=== PATIENT | female | born 1995 | race Caucasian/White ===

== ENCOUNTER 2016-12-15 23:32 | Emergency (ER) | payer MEDICAID ==
[2016-12-16] VITALS: BMI 24.5
[2016-12-16] MEDS ORDERED: Sodium Chloride 0.9% 1,000 ML IV STA (00:05)
[2016-12-16 00:52] VITALS: BP 139/72; TEMP 98.4; O2SAT 100
[2016-12-16 01:06] LABS: URINE BILIRUBIN NEGATIVE (NEGATIVE); URINE BLOOD TRACE-LYSED (NEGATIVE); URINE GLUCOSE (UA) NEGATIVE (NEGATIVE); URINE LEUKOCYTE ESTERASE NEGATIVE Leu/uL (NEGATIVE); URINE NITRATE NEGATIVE (NEGATIVE); URINE PROTEIN NEGATIVE mg/dL (<30 mg/dL); URINE UROBILINOGEN 0.2 E.U./dL (<1 E.U./dL)
[2016-12-16 01:11] LABS: ALB/GLOB RATIO 1.2 (1.1-1.8); ALBUMIN 4.5 g/dL (3.0-4.8); AST/SGOT 21 U/L (15-39); BLOOD UREA NITROGEN 9 mg/dL (7-21); GFR AFRICAN-AMERICAN > 60; GFR NON-AFRICAN AMERICAN > 60
[2016-12-16 01:13] LABS: URINE APPEARANCE CLEAR (CLEAR); URINE COLOR YELLOW (YELLOW)
[2016-12-16 01:15] LABS: BASO # 0.02 K/mm3 (0.0-2.0); BASO % 0.3 % (0.0-3.0); EOS # 0.1 (0.0-0.7); EOS % 1.9 % (1.5-5.0); GRAN # 3.81 (1.4-6.5); GRAN % 56.3 % (50.0-68.0); HCG,QUALITATIVE URINE POSITIVE (NEGATIVE); LYMPH # 2.2 (1.2-3.4); LYMPH % 32.9 % (22.0-35.0); MEAN CELL VOLUME 80.5 fL (80.0-105.0); MEAN CORPUSCULAR HEMOGLOBIN 27.9 pg (25.0-35.0); MEAN CORPUSCULAR HGB CONC 34.7 g/dl (31.0-37.0); MEAN PLATELET VOLUME 9.9 fl (7.0-11.0); MONO # 0.6 (0.1-0.6); MONO % 8.6 % (1.0-6.0); PLATELET COUNT 313 10^3/uL (120.0-450.0); RBC 4.66 10^6/uL (3.5-6.1); RED CELL DISTRIBUTION WIDTH 13.1 % (11.5-14.5); WHITE BLOOD COUNT 6.8 10^3/ul (4.5-11.0)
[2016-12-16 01:21] LABS: URINE EPITHELIAL CELLS 0 - 2 /hpf (0-5); URINE RBC 0 - 2 /hpf (0-2); URINE WBC 0 - 2 /hpf (0-6)
[2016-12-16 01:28] LABS: ALT/SGPT 17 U/L (7-56)
--- NOTE | 2016-12-16 01:32 | ED PDOC ---
Arrival/HPI - General Chief Complaint: Female Genitourinary Time Seen by Provider: 12/16/16 00:04 Historian: Patient - History of Present Illness Narrative History of Present Illness (Text): 12/16/16 01:29 21yr old female who is 10 weeks presents today with vaginal bleeding x 4 days. pt c/o occasional lower abdominal cramping. no fever/chills. denies urinary symptoms. no cp or sob. no vomiting/diarrhea. denies dizziness or weakness. pt states she had US at 8weeks which confirmed IUP. Time/Duration: Other (4 days) Symptom Onset: Gradual Symptom Course: Intermittent Quality: Cramping Severity Level: 2 Past Medical History - Provider Review Nursing Documentation Reviewed: Yes - Travel History Have you recently traveled outside [place] w/in the past 3 mons?: Yes If Yes, travel location?: [place] - Infectious Disease Hx of Infectious Diseases: None - Tetanus Immunization Tetanus Immunization: Unknown - Cardiac Hx Cardiac Disorders: No - Pulmonary Hx Respiratory Disorders: No - Psychiatric Hx Anxiety: Yes Hx Substance Use: No Family/Social History - Physician Review Nursing Documentation Reviewed: Yes Family/Social History: Unknown Family HX Smoking Status: Unknown If Ever Smoked Hx Alcohol Use: No Hx Substance Use: No Allergies/Home Meds Allergies/Adverse Reactions: Allergies Penicillins Allergy (Verified 03/23/16 11:37) RASH pineapple Allergy (Verified 12/16/16 00:01) RASH Review of Systems - Review of Systems Constitutional: absent: Fatigue, Fevers Respiratory: absent: SOB, Cough Cardiovascular: absent: Chest Pain, Palpitations Gastrointestinal: Abdominal Pain. absent: Constipation, Diarrhea, Nausea, Vomiting Genitourinary Female: Vaginal Bleeding. absent: Dysuria, Frequency, Hematuria, Vaginal Discharge Musculoskeletal: absent: Arthralgias, Back Pain, Neck Pain Skin: absent: Rash, Pruritis Neurological: absent: Headache, Dizziness Psychiatric: absent: Anxiety, Depression Physical Exam Vital Signs Reviewed: Yes Vital Signs Temp Pulse Resp BP Pulse Ox 12/16/16 01:37 89 17 100 12/16/16 00:48 98.4 F 109 H 16 139/72 100 12/15/16 23:33 98.4 F 109 H 16 139/72 100 Temperature: Afebrile Blood Pressure: Normal Pulse: Tachycardic Respiratory Rate: Normal Appearance: Positive for: Well-Appearing, Non-Toxic, Comfortable Pain Distress: None Mental Status: Positive for: Alert and Oriented X 3 - Systems Exam Head: Present: Atraumatic Mouth: Present: Moist Mucous Membranes Neck: Present: Normal Range of Motion Respiratory/Chest: Present: Clear to Auscultation, Good Air Exchange. No: Respiratory Distress, Accessory Muscle Use Cardiovascular: Present: Regular Rate and Rhythm, Normal S1, S2. No: Murmurs Abdomen: Present: Normal Bowel Sounds. No: Tenderness, Distention, Peritoneal Signs, Rebound, Guarding Genitourinary/Pelvic Exam: Present: Other (PATIENT REFUSED PELVIC EXAMINATION) Back: Present: Normal Inspection. No: CVA Tenderness, Midline Tenderness, Paraspinal Tenderness Upper Extremity: Present: Normal Inspection Lower Extremity: Present: Normal Inspection. No: Edema Neurological: Present: GCS=15 Skin: Present: Warm, Dry, Normal Color. No: Rashes Psychiatric: Present: Alert, Oriented x 3 Medical Decision Making ED Course and Treatment: 12/16/16 01:35 Patient is nontoxic well appearing in no distress. C/O vaginal bleeding x 4 days. pt refused pelvic/speculum examination. CBC: wnl CMP: wnl Beta hC TYPE AND SCREEN: A+ Urinalysis:+ blood Ultrasound: FINDINGS: Gestation: There is a single intrauterine gestation. Gestational sac has mean diameter 39.7 mm [place] rump length measures 36.6 mm. There is heart rate of 196 beats per minute. Uterus: Uterus measures 11.3 x 5.5 x 7.9 cm. Ovaries: Neither ovary is identified Free fluid: No free fluid. IMPRESSION: 10 week 0 day single live intrauterine gestation, estimated date of delivery 07/14/2017 Discussed all the results the patient. advised f/u with the custom miller within the next 2 days. advised immediate return if symptoms worsen,persist or if new symptoms develop. Patient verbalizes understanding of discharge instructions and need for immediate followup. Impression: threatened Increase fluids Followup with the skates operator within the next 2 days Return immediately if symptoms worsen persist or if new symptoms develop: High fevers, heavy bleeding, severe abdominal pain, vomiting, diarrhea, dizziness or weakness or any other concerning symptoms develop. continue vitamins daily. - Lab Interpretations Lab Results: 12/16/16 00:35 12/16/16 00:35 Lab Results 12/16/16 00:35: Blood Type A POSITIVE, Antibody Screen Negative, BBK History Checked No verified bt 12/16/16 00:35: WBC 6.8, RBC 4.66, Hgb 13.0, Hct 37.5, MCV 80.5, MCH 27.9, MCHC 34.7, RDW 13.1, Plt Count 313, MPV 9.9, Gran % 56.3, Lymph % (Auto) 32.9, Boyd % (Auto) 8.6 H, Eos % (Auto) 1.9, Baso % (Auto) 0.3, Gran # 3.81, Lymph # 2.2, Boyd # 0.6, Eos # 0.1, Baso # 0.02 12/16/16 00:35: Beta HCG, Quant 69108.00 H 12/16/16 00:35: Sodium 137, Potassium 4.0, Chloride 102, Carbon Dioxide 24, Anion Gap 15, BUN 9, Creatinine 0.5, Est GFR ( Amer) > 60, Est GFR (Non- Af Amer) > 60, Random Glucose 89, Calcium 10.0, Total Bilirubin 0.4, AST 21, ALT 17, Alkaline Phosphatase 44, Total Protein 8.2, Albumin 4.5, Globulin 3.7, Albumin/Globulin Ratio 1.2 12/16/16 00:35: Urine Color Yellow, Urine Appearance Clear, Urine pH 6.0, Ur Specific [place] 1.010, Urine Protein Negative, Urine Glucose (UA) Negative, Urine Ketones Negative, Urine Blood Trace-lysed H, Urine Nitrate Negative, Urine Bilirubin Negative, Urine Urobilinogen 0.2, Ur Leukocyte Esterase Negative , Urine RBC 0 - 2, Urine WBC 0 - 2, Ur Epithelial Cells 0 - 2, Urine HCG, Qual Positive - RAD Interpretation Radiology Orders: 12/16/16 00:05 AGE [US] Stat - Medication Orders Current Medication Orders: Discontinued Medications Sodium Chloride (Sodium Chloride 0.9%) 1,000 mls @ 999 mls/hr IV .[id number] STA Stop: 12/16/16 01:05 Last Admin: 12/16/16 01:31 Dose: 999 mls/hr Disposition/Present on Arrival - Present on Arrival Any Indicators Present on Arrival: No History of DVT/PE: No History of Uncontrolled Diabetes: No Urinary Catheter: No History of Decub. Ulcer: No History Surgical Site Infection Following: None - Disposition Have Diagnosis and Disposition been Completed?: Yes Diagnosis: Threatened Disposition: HOME/ ROUTINE Disposition Time: 01:55 Patient Plan: Discharge Patient Problems: Current Active Problems Problem Status Onset Threatened Acute Condition: GOOD Discharge Instructions (ExitCare): Threatened Miscarriage (ED) Additional Instructions: Increase fluids Followup with the skates operator within the next 2 days Return immediately if symptoms worsen persist or if new symptoms develop: High fevers, heavy bleeding, severe abdominal pain, vomiting, diarrhea, dizziness or weakness or any other concerning symptoms develop. continue vitamins daily. Referrals: Jailene Ventura MD [Staff Provider] - Follow up with primary Forms: [employer] (Czech), WORK NOTE
--- NOTE | 2016-12-16 01:44 | US ---
EXAM: US First Trimester, Transabdominal CLINICAL HISTORY: 21 years old, female; Pain; complicated by abdominal or pelvic pain; spotting First trimester; Gestational age or lmp: 10/01/2016; TECHNIQUE: Real-time transabdominal obstetrical ultrasound of the maternal pelvis and a first trimester with image documentation. EXAM DATE/TIME: 12/16/2016 12:05 AM COMPARISON: There are no prior studies for comparison. FINDINGS: Gestation: There is a single intrauterine gestation. Gestational sac has mean diameter 39.7 mm [place] rump length measures 36.6 mm. There is heart rate of 196 beats per minute. Uterus: Uterus measures 11.3 x 5.5 x 7.9 cm. Ovaries: Neither ovary is identified Free fluid: No free fluid. IMPRESSION: 10 week 0 day single live intrauterine gestation, estimated date of delivery 07/14/2017
[2016-12-16 01:45] VITALS: PULSE 89; RESP 17
== END 2016-12-16 02:40 | disposition home or self-care (01) ==
LOC: ED 23:32
DX: O20.0 Threatened abortion (principal); Z3A.10 10 weeks gestation of pregnancy
CPT/HCPCS: 76815; 80053; 81001; 84702; 84703; 85025; 86850; 86900; 87086; 96360; 99283; J7040